=== PATIENT | male | born 1950 | race Caucasian/White ===

== ENCOUNTER 2018-10-29 17:18 | Emergency (ER) | payer MEDICARE, BC, OTHER ==
[2018-10-29 18:53] LABS: URINE BLOOD (Dip) POC Negative (NEGATIVE); URINE GLUCOSE (Dip) POC Negative (NEGATIVE); URINE KETONES (Dip) POC Trace (NEGATIVE); URINE LEUKOCYTE EST (Dip) POC Negative (NEGATIVE); URINE NITRITE (Dip) POC Negative (NEGATIVE); URINE TOTAL PROTEIN POC Negative (NEGATIVE)
[2018-10-29 18:53] LABS: URINE PH (Dip) POC 5.5 (5.0-8.5)
[2018-10-29] MEDS: HYDROCODONE/APAP (5/325) TAB PO (19:02)
[2018-10-29] MEDS: ONDANSETRON (ODT) 4 MG TAB ODT (19:03)
== END 2018-10-29 20:07 | disposition home or self-care (01) ==
LOC: E/R 17:18
DX: S01.81XA Laceration without foreign body of other part of head, initial encounter (principal); S69.91XA Unspecified injury of right wrist, hand and finger(s), initial encounter; S39.92XA Unspecified injury of lower back, initial encounter; I25.2 Old myocardial infarction; I25.10 Atherosclerotic heart disease of native coronary artery without angina pectoris; V47.5XXA Car driver injured in collision with fixed or stationary object in traffic accident, initial encounter; Z98.61 Coronary angioplasty status
CPT/HCPCS: 12011; 72100; 73130-RT; 81003; 99284-25